=== PATIENT | female | born 1990 | race Caucasian/White ===

== ENCOUNTER 2023-02-10 12:51 | Emergency (ER) | payer OTHER, MEDICAID, SELFPAY ==
[2023-02-10 13:19] VITALS: BP 98/58; PULSE 58; RESP 16; TEMP 36.3; O2SAT 97; BMI 42.5
[2023-02-10 14:05] VITALS: PULSE 49; RESP 19; O2SAT 98
--- NOTE | 2023-02-10 14:42 | ED.BACK ---
HPI - Back Pain/Injury General Chief Complaint: Back Pain/Injury Stated Complaint: back pain since Th, kid stone heal hist, pcos Time Seen by Provider: 02/10/23 13:30 Source: patient History of Present Illness HPI Narrative: Patient comes to the ER today because of back pain. She has an insidious onset of the pain over the past 4 or 5 days. She is used multiple home remedies including topical NSAIDs on her low back and multiple formulations of THC and CBD to no effect. She is also used Tylenol with no effect. She can not take oral NSAIDs because of a stomach ulcer. She denies incontinence and lower extremity weakness and fever. No discrete injury. Related Data Previous Rx's Medication Instructions Recorded prednisone 20 mg tablet 20 mg PO DAILY #4 tabs 02/10/23 Patient History Social History Smoking Status: Never smoker Smoking Status: Never smoker Substance Use Type: marijuana Exam Narrative Exam Narrative: GENERAL: Alert, cooperative and in no distress. HEAD: Atraumatic. Normocephalic. EYES: Sclera are clear without icterus. Extraocular movements are full. ENT: No rhinorrhea. Oropharynx is moist. Mouth exam is benign. NECK: Supple. Full range of motion. CARDIOVASCULAR: Normal rate and rhythm without murmur gallop or rub. RESPIRATORY: Clear to auscultation. Breath sounds equal bilaterally. No wheezes, rales, or rhonchi. GASTROINTESTINAL: Abdomen soft, non-tender, nondistended. EXTREMITIES: No edema, full range of motion. No obvious trauma. BACK: Normal inspection, no CVA tenderness. NEURO: Nonfocal examination, normal speech, normal gait. Normal dorsiflexion and plantar flexion strength SKIN: No rash or erythema of visible areas PSYCH: Normally oriented. Normal range of affect. Appropriate behavior Initial Vital Signs Initial Vital Signs: Vital Signs Temperature 97.4 F L 02/10/23 13:19 Pulse Rate 58 L 02/10/23 13:19 Respiratory Rate 16 02/10/23 13:19 Blood Pressure 98/58 L 02/10/23 13:19 Pulse Oximetry 97 02/10/23 13:19 Oxygen Delivery Method Room Air 02/10/23 13:19 Course Course Course Narrative: No imaging or laboratory data is ordered. Oral controlled substances are administered and prescription treatment as prescribed Orders Ordered: Discontinued Medications Oxycodone HCl (Oxycodone 5 Mg/5 Ml Oral Solution) 5 mg PO NOW ONE Stop: 02/10/23 14:38 Prednisone (Prednisone 20 Mg Tablet) 20 mg PO NOW ONE Stop: 02/10/23 14:39 Vital Signs Vital signs: Vital Signs - 8 hr 02/10/23 13:19 02/10/23 14:05 Temperature 97.4 F L Pulse Rate 58 L 49 L Respiratory Rate 16 19 Blood Pressure 98/58 L Pulse Oximetry 97 98 Oxygen Delivery Method Room Air Room Air MDM - Back Pain/Injury Lab Data Labs: Point of Care Testing Test Results Negative Urine Dip Bedside Urine Glucose Negative Bedside Urine Bilirubin - Negative Bedside Urine Ketone - Negative Urine Specific [place] 1.030 Bedside Urine Occult Blood - Negative Bedside Urine pH 6.0 Bedside Urine Protein - Negative Bedside Urine Urobilinogen - Negative Bedside Urine Nitrite - Negative Bedside Urine Leukocytes - Negative Esterase Discharge Plan Departure Patient Disposition: Home Clinical Impression: Strain of lumbar region Instructions: DI for Back Pain With Sciatica Activity Restrictions/Additional Instructions: No dangerous cause for your back pain is identified. Specifically, no infection in the spine or tumor or spinal cord impingement is suspected. I think conservative measures are appropriate. Normally I would recommend strong NSAID use but you can not take this because of your stomach ulcer so we will take the option of using prednisone which is a steroid instead. Take 20 mg daily for 5 days. Use the other measures you have been using. Stay active. Follow-up right away for weakness or incontinence or lower extremity dysfunction. Follow-up with your doctor next week if symptoms are not improving. Sooner if worse. Prescriptions: New prednisone 20 mg tablet 20 mg PO DAILY Qty: 4 0RF Stand Alone Forms: Patient Portal/API
[2023-02-10] MEDS: predniSONE 20 MG TABLET PO (14:49)
[2023-02-10] MEDS: OXYCODONE IR 5 MG TABLET PO (14:49)
[2023-02-10 15:04] VITALS: BP 119/59; PULSE 58; RESP 18; O2SAT 96
== END 2023-02-10 15:10 | disposition home or self-care (01) ==
PROVIDERS: Emergency Provider Family Medicine Addiction Medicine
DX: S39.012A Strain of muscle, fascia and tendon of lower back, initial encounter (principal); X58.XXXA Exposure to other specified factors, initial encounter
CPT/HCPCS: 81003; 81025; 99283

== ENCOUNTER 2023-03-14 13:27 | Emergency (ER) | payer OTHER, MEDICAID, SELFPAY ==
[2023-03-14 13:31] VITALS: BP 136/83; PULSE 77; RESP 18; TEMP 36.4; O2SAT 98; BMI 47.1
--- NOTE | 2023-03-14 15:34 | ED.BACK ---
HPI - Back Pain/Injury <Lee Montanez PA-C - Last Filed: 03/14/23 17:58> General Chief Complaint: Back Pain/Injury Stated Complaint: Back pain Time Seen by Provider: 03/14/23 14:48 Source: patient History of Present Illness HPI Narrative: This is a 32-year-old female presents emergency department due to 3 Day history of acute on chronic back pain. She states the pain is affecting her lower back and lower C-spine. She is also describing numbness and tingling in her feet and hands. She is tried topical creams, gabapentin, Tylenol without relief. Unable to have NSAIDs due to GI ulcer history. Patient was seen at [facility] 2 weeks ago. Has a history of degenerative disc disease and bulging disc. On record review patient was seen proximally 3 weeks ago at [facility] Emergency Department. History of traumatic low back injury falling vaginal delivery. Patient reports having difficulty controlling her bowels during that visit. Has a referral pending to a spine clinic. She reports she has an appointment at [facility] on February 27. MRI of the full spine was performed. No acute pathology to explain the patient's symptoms. It was discussed that this was likely functional with some musculoskeletal spasms and tightness. On review MRI findings this showed minor degenerative disc disease with protrusion at C5-C6. Minor left-sided subarticular broad-based disc protrusion at T6-T7 and T7-T8 lumbar MRI showed minor lower lumbar spondylosis seen discogenic changes. No changes in her pain other than worsening being causing her being to be unable to sleep. Patient was also seen on 02/10 here in the [facility] Emergency Department due the back pain. Low concern for any cause of the pain. She was discharged with a prednisone burst for 5 days. Related Data Previous Rx's Medication Instructions Recorded prednisone 20 mg tablet 20 mg PO DAILY #4 tabs 02/10/23 prednisone 20 mg tablet 20 mg PO DAILY #5 tabs 03/14/23 Allergies Allergy/AdvReac Type Severity Reaction Status Date / Time No Known Drug Allergies Allergy Verified 03/14/23 13:30 Review of Systems <WERNER Mauricio Last Filed: 03/14/23 17:58> Review of Systems Narrative: GENERAL: Denies chills, fatigue, malaise, fever, sweats. HEENT: Denies sinus pain, ear pain, sore throat, difficulty swallowing, dizziness. RESPIRATORY: Denies dyspnea, cough, wheezing, hemoptysis, sputum. CARDIOVASCULAR: Denies chest pain, palpitations, orthopnea, edema, GASTROINTESTINAL: Denies nausea, vomiting, abdominal pain, diarrhea, constipation, melena. : Denies dysuria, frequency, incontinence, hematuria, urinary retention. MUSCULOSKELETAL: Reports back pain denies weakness, joint pain, or bony pain SKIN: Denies rash, skin lesions, or other NEUROLOGIC: Reports numbness and tingling in the distal fingers, Denies weakness, headache, , change in speech, confusion, seizures, incoordination. PSYCHIATRIC: No concerning psychosocial issues. 12 point review of systems is negative except for those stated above Patient History <Lee Montanez PA-C - Last Filed: 03/14/23 17:58> Social History Smoking Status: Never smoker Smoking Status: Never smoker alcohol intake frequency: holidays/special occasions only Substance Use Type: marijuana Exam <Lee Montanez PA-C - Last Filed: 03/14/23 17:58> Narrative Exam Narrative: GENERAL: Well-developed patient, in mild distress. HEAD: Atraumatic. Normocephalic. EYES: Pupils equal round and reactive. Extraocular motions intact. No scleral icterus. No injection or drainage. ENT: Nose without bleeding, purulent drainage. Throat without erythema, tonsillar hypertrophy or exudate. Airway patent. NECK: Trachea midline. Non tender CARDIOVASCULAR: Regular rate and rhythm without murmurs, gallops, or rubs. RESPIRATORY: Clear to auscultation. Breath sounds equal bilaterally. No wheezes, rales, or rhonchi. GASTROINTESTINAL: Abdomen soft, non-tender, nondistended. EXTREMITIES: No edema or joint tenderness. BACK: Diffuse tenderness throughout the spine NEURO: AOx3. SKIN: No rash or erythema of visible areas Initial Vital Signs Initial Vital Signs: Vital Signs Temperature 97.6 F 03/14/23 13:31 Pulse Rate 77 03/14/23 13:31 Respiratory Rate 18 03/14/23 13:31 Blood Pressure 136/83 03/14/23 13:31 Pulse Oximetry 98 03/14/23 13:31 Oxygen Delivery Method Room Air 03/14/23 13:31 <Nani Bills DO - Last Filed: 03/14/23 20:07> Initial Vital Signs Initial Vital Signs: Vital Signs Temperature 97.6 F 03/14/23 13:31 Pulse Rate 77 03/14/23 13:31 Respiratory Rate 18 03/14/23 13:31 Blood Pressure 136/83 03/14/23 13:31 Pulse Oximetry 98 03/14/23 13:31 Oxygen Delivery Method Room Air 03/14/23 13:31 Course <Lee Montanez PA-C - Last Filed: 03/14/23 17:58> Orders Ordered: Discontinued Medications Ketorolac Tromethamine (Ketorolac 30 Mg/Ml Vial) 15 mg IM NOW ONE Stop: 03/14/23 16:13 Last Admin: 03/14/23 16:32 Dose: 15 mg Documented By: DEUCE Vital Signs Vital signs: Vital Signs - 8 hr 03/14/23 13:31 03/14/23 16:51 Temperature 97.6 F Pulse Rate 77 66 Respiratory Rate 18 Blood Pressure 136/83 107/72 Pulse Oximetry 98 98 Oxygen Delivery Method Room Air Room Air <Nani Bills DO - Last Filed: 03/14/23 20:07> Orders Ordered: Discontinued Medications Ketorolac Tromethamine (Ketorolac 30 Mg/Ml Vial) 15 mg IM NOW ONE Stop: 03/14/23 16:13 Last Admin: 03/14/23 16:32 Dose: 15 mg Documented By: DEUCE Vital Signs Vital signs: Vital Signs - 8 hr 03/14/23 13:31 03/14/23 16:51 Temperature 97.6 F Pulse Rate 77 66 Respiratory Rate 18 Blood Pressure 136/83 107/72 Pulse Oximetry 98 98 Oxygen Delivery Method Room Air Room Air MDM - Back Pain/Injury <Lee Montanez PA-C - Last Filed: 03/14/23 17:58> Lab Data Labs: Urine Dip Bedside Urine Glucose Negative Bedside Urine Bilirubin - Negative Bedside Urine Ketone - Negative Urine Specific [place] 1.025 Bedside Urine Occult Blood - Negative Bedside Urine pH 5.5 Bedside Urine Protein - Negative Bedside Urine Urobilinogen +/- 1mg Bedside Urine Nitrite - Negative Bedside Urine Leukocytes - Negative Esterase MDM Narrative Medical decision making narrative: MDM * differential diagnosis includes but not limited to vertebral fracture, spinal cord compromise, muscular strains * Prior records reviewed: As above * My lab interpretation: None obtained * My imgaing interpretation: None obtained * Clinical Decision Rules/Scores evaluated: None * Independent discussions with: None ED Course: This is a 32-year-old female presents emergency department with acute on chronic diffuse spinal pain. She was recently seen at [facility] where she would a full spine MRI which showed no findings to explain the pain. Recommend patient follow through with the primary care provider provider appointment established for early next month for referral to a spine clinic for further evaluation. Patient requested Toradol injection multiple times. She states that she is a suspected GI ulcer although she was never diagnosed by Gastroenterology, suspects she does based on the pain. Discussed the risks of giving her Toradol but she requested multiple times as she states this is ?the only thing that helps the pain. She is also requesting a prednisone burst which was given to her previously which significantly helped to increase the pain. She is also taking 1 g Tylenol and advised that she you may increase to a max dosage of 3 g per day although to avoid this intermediate designer. This is just to help her until she is able to follow up with her primary care provider. No new symptoms worsening pain since she was seen in the [facility] ED 2 weeks ago. Shared Decision Making: Discussed plan patient who is comfortable with the plan. Social Considerations: None Disposition: Discharge to home <Nani Bills, - Last Filed: 03/14/23 20:07> Lab Data Labs: Urine Dip Bedside Urine Glucose Negative Bedside Urine Bilirubin - Negative Bedside Urine Ketone - Negative Urine Specific [place] 1.025 Bedside Urine Occult Blood - Negative Bedside Urine pH 5.5 Bedside Urine Protein - Negative Bedside Urine Urobilinogen +/- 1mg Bedside Urine Nitrite - Negative Bedside Urine Leukocytes - Negative Esterase Discharge Plan Departure Patient Disposition: Home Clinical Impression: Back pain Instructions: DI for Back Strain or Sprain Activity Restrictions/Additional Instructions: Thank you for coming to the [facility] Emergency Department today. As discussed your MRI from 2 weeks ago from [facility] was reassuring. I suspect that you will need to follow up in a Orthopedic spine Clinic. Please continue with the primary care provider referral early next month as a the best people to help manage her pain. You may increase your Tylenol to a max dosing of 3 g per day. Please take the prednisone as prescribed. I recommend massage and chiropractor as well as the maybe will help with the pain. I sent the medication [facility] in [facility]. I hope you feel better soon. Prescriptions: New prednisone 20 mg tablet 20 mg PO DAILY Qty: 5 0RF No Action prednisone 20 mg tablet 20 mg PO DAILY Qty: 4 0RF Stand Alone Forms: Patient Portal/API <Nani Bills DO - Last Filed: 03/14/23 20:07> [facility] Attending Cirilo Attestation: I was immediately available in the department for consultation.
[2023-03-14] MEDS: KETOROLAC 30 MG/ML VIAL 15 MG IM (16:32)
[2023-03-14 16:51] VITALS: BP 107/72; PULSE 66; O2SAT 98
== END 2023-03-14 16:52 | disposition home or self-care (01) ==
PROVIDERS: Emergency Provider Physician Assistant Medical
DX: M54.50 Low back pain, unspecified (principal)
CPT/HCPCS: 81003; 96372; 99283; J1885